=== PATIENT | male | born 1970 | race Two or more races ===

== ENCOUNTER 2017-12-06 16:19 | Emergency (ER) | payer MEDICAID ==
[~2017-12-06] VITALS: Ht 177.8 cm; Wt 86.2 kg
[2017-12-06 16:20] VITALS: BP 135/89
[2017-12-06] MEDS ORDERED: Solu-MEDROL 125mg Inj IVP ONE (16:45)
[2017-12-06] MEDS ORDERED: Sodium Chloride 500ML 500 ML IV ONE (16:45)
--- NOTE | 2017-12-06 16:55 | Emergency Room Report ---
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 which causes acid inhalation into the airway and causes reactive airway disease which includes mild asthma Patient at this time feels significantly improved patient is walking in the room and reports that walking does help relieve some of the gas Denies any back or flank pain denies any dysuria frequency Patient here requesting to be allowed to walk around Patient reports that he does sometimes get magnesium, also steroids However at this time does not want albuterol Patient also reports that he has a implant in the left upper abdomen which only 60 people have in the neck it states it helps to reset the reflex involved with the acid production Allergies: Coded Allergies: No Known Allergies (Unverified , 12/06/17) Patient History Past Medical History: see triage record Pertinent Family History: none Reviewed Nursing Documentation: PMH: Agreed; PSxH: Agreed Nursing Documentation-PMH Past Medical History: No History, Except For Hx Gastrointestinal Problems: Yes - LTR gerd with endostim implant Review of Systems All Other Systems: negative except mentioned in HPI Physical Exam Vital Signs Date Time Temp Pulse Resp B/P (MAP) Pulse Ox O2 Delivery O2 Flow Rate FiO2 12/06/17 16:10 97.7 145 24 135/89 95 Room Air 97.7 Sp02 EP Interpretation: reviewed, normal General Appearance: well appearing, no apparent distress Head: normocephalic, atraumatic Eyes: bilateral eye PERRL, bilateral eye EOMI ENT: hearing grossly normal, normal pharynx, TMs + canals normal, uvula midline Neck: full range of motion, supple, no meningismus, no bony tend Respiratory: no respiratory distress, no retraction, no accessory muscle use, wheezing - Very fine wheeze in both lower lobes Cardiovascular #1: normal peripheral pulses, regular rate, rhythm, no edema, no gallop, no JVD, no murmur Gastrointestinal: normal bowel sounds, non tender, soft, no mass, no organomegaly, non-distended, no guarding, no hernia, no pulsatile mass, no rebound Genitourinary: no CVA tenderness Musculoskeletal: normal inspection Neurologic: oriented x3, responsive, turbine inspector III-XII nml as tested, motor strength/ tone normal, sensory intact Psychiatric: mood/affect normal Skin: normal color, no rash, warm/dry, palpation normal Lymphatic: normal inspection, no adenopathy Medical Decision Making Diagnostic Impression: Primary Impression: Respiratory distress Additional Impressions: Reflux esophagitis Reflux gastritis Reflux laryngitis ER Course Patient presents with respiratory distress and shortness of breath He received breathing treatment in route and feels significantly better Patient fairly well knowledge that about his diagnosis requesting magnesium and steroids Patient was provided medication here continues to do better at this time stable for close outpatient follow-up Last Vital Signs Date Time Temp Pulse Resp B/P (MAP) Pulse Ox O2 Delivery O2 Flow Rate FiO2 12/06/17 16:20 145 24 Room Air 12/06/17 16:20 97.7 135/89 95 97.7 Status: improved Disposition: HOME, SELF-CARE Condition: Improved Scripts Albuterol Sulfate* (ALBUTEROL SULFATE HHN*) 2.5 Mg/3 Ml Vial.neb 2.5 MG HHN Q4H PRN for Shortness of Breath, #25 VIAL Prov: Yovany Bell DO 12/06/17 Albuterol Sulfate* (ALBUTEROL SULFATE MDI*) 8.5 Gm Hfa.aer.ad 2 PUFF INH Q6H, #1 EA 0 Refills Prov: Yovany Bell DO 12/06/17 Additional Instructions: Patient is provided with the discharge instructions notified to follow up with primary doctor in the next 2-3 days otherwise return to the er with any worsening symptoms. Please note that this report is being documented using [employer] technology. This can lead to erroneous entry secondary to incorrect interpretation by the dictating instrument. Yovany Bell DO Dec 06, 2017 16:55
[2017-12-06] MEDS ORDERED: ALBUTEROL SULF8.5 GM INH (18:24)
[2017-12-06] MEDS ORDERED: ALBUTEROL2.5 MG/3 M HHN (18:41)
== END 2017-12-06 18:57 | disposition home or self-care (01) ==
LOC: EDBD 16:19 → EMR 17:02
DX: R06.03 Acute respiratory distress (principal); K21.0 Gastro-esophageal reflux disease with esophagitis; K29.70 Gastritis, unspecified, without bleeding; J04.0 Acute laryngitis; Z96.89 Presence of other specified functional implants
CPT/HCPCS: 96361; 96374; 99284; J2930; J7040